=== PATIENT | male | born 1990 | race African-American/Black ===

== ENCOUNTER 2017-05-03 03:41 | Emergency (ER) | payer MEDICAID ==
[~2017-05-03] VITALS: Ht 185.4 cm; Wt 80.0 kg
[2017-05-03] MEDS ORDERED: LIDOCAINE HCL 1% 20ML VIAL (Pyxis) INJ MC ONE (06:15)
[2017-05-03] MEDS ORDERED: IBUPROFEN 600MG TABLET PO ONE (06:15)
[2017-05-03 06:30] VITALS: BP 117/65
== END 2017-05-03 07:05 | disposition home or self-care (01) ==
LOC: ER 03:41
DX: S01.511A Laceration without foreign body of lip, initial encounter (principal); Y04.0XXA Assault by unarmed brawl or fight, initial encounter; Y93.89 Activity, other specified; Y92.29 Other specified public building as the place of occurrence of the external cause
CPT/HCPCS: 12011; 99283; J3490; X7700; Z7610

== ENCOUNTER 2017-05-08 08:34 | Emergency (ER) | payer MEDICAID ==
[~2017-05-08] VITALS: Ht 188 cm; Wt 90.0 kg
[2017-05-08 08:47] VITALS: BP 113/48
[2017-05-08] MEDS ORDERED: BACITRACIN ZINC OINT UDPKT TOP ONE (09:45)
== END 2017-05-08 10:16 | disposition home or self-care (01) ==
LOC: ER 08:34
DX: S01.511D Laceration without foreign body of lip, subsequent encounter (principal); X58.XXXD Exposure to other specified factors, subsequent encounter; Y92.89 Other specified places as the place of occurrence of the external cause; Y99.8 Other external cause status
CPT/HCPCS: 99282; Z7610

== ENCOUNTER 2017-05-12 20:49 | Emergency (ER) | payer MEDICAID ==
[~2017-05-12] VITALS: Ht 188 cm; Wt 82.0 kg
[2017-05-12] MEDS ORDERED: LIDOCAINE HCL 1%/EPI 1:200,000 30 ML VIAL MC ONE (22:00)
[2017-05-12] MEDS ORDERED: BACITRACIN ZINC OINT UDPKT TOP ONE (22:00)
[2017-05-12 23:59] VITALS: BP 130/78
== END 2017-05-13 00:33 | disposition home or self-care (01) ==
LOC: ER 21:59
DX: S01.111A Laceration without foreign body of right eyelid and periocular area, initial encounter (principal); Y08.89XA Assault by other specified means, initial encounter; Y93.89 Activity, other specified; Y92.89 Other specified places as the place of occurrence of the external cause; Y99.8 Other external cause status
CPT/HCPCS: 12011; 70450; 70486; 99284

== ENCOUNTER 2017-05-18 05:39 | Emergency (ER) | payer MEDICAID ==
[~2017-05-18] VITALS: Ht 188 cm; Wt 84.0 kg
[2017-05-18 05:42] VITALS: BP 125/61
== END 2017-05-18 11:03 | disposition home or self-care (01) ==
LOC: ER 08:04
DX: Z48.02 Encounter for removal of sutures (principal)
CPT/HCPCS: 99282; X7700; Z7610

== ENCOUNTER 2018-12-13 20:41 | Emergency (ER) | payer MEDICAID ==
[~2018-12-13] VITALS: Ht 188 cm; Wt 85.0 kg
[2018-12-13] MEDS ORDERED: LIDOCAINE HCL/PF 1% 10 MG/ML 5ML VIAL IJ ONE (21:15)
[2018-12-13] MEDS ORDERED: BACITRACIN ZINC OINT UDPKT TOP ONE (21:15)
[2018-12-13] MEDS ORDERED: HYDROCODONE/ACETAMINOPHEN 5/325MG TABLET PO ONE (21:30)
[2018-12-13 22:28] VITALS: BP 133/69
[2018-12-14] MEDS ORDERED: LIDOCAINE HCL 1% 20ML VIAL (Pyxis) INJ INFIL ONE (00:45)
== END 2018-12-14 01:46 | disposition home or self-care (01) ==
LOC: ER 20:41
DX: S61.411A Laceration without foreign body of right hand, initial encounter (principal); W01.0XXA Fall on same level from slipping, tripping and stumbling without subsequent striking against object, initial encounter; Y93.89 Activity, other specified; Y92.89 Other specified places as the place of occurrence of the external cause; Y99.8 Other external cause status
CPT/HCPCS: 12004; 73130; 99283; J3490

== ENCOUNTER 2018-12-27 12:18 | Emergency (ER) | payer MEDICAID ==
[~2018-12-27] VITALS: Ht 188 cm; Wt 84.0 kg
[2018-12-27 14:40] VITALS: BP 128/69
== END 2018-12-27 14:50 | disposition home or self-care (01) ==
LOC: ER 12:18
DX: Z48.02 Encounter for removal of sutures (principal)
CPT/HCPCS: 99281; Z7610